=== PATIENT | female | born 1980 | race Two or more races ===

== ENCOUNTER 2022-11-28 20:05 | Emergency (ER) | payer OTHER, SELFPAY ==
--- NOTE | ~2022-11-28 | CT_ITS ---
EXAMINATION: CT ABDOMEN AND PELVIS WITH CONTRAST CLINICAL INFORMATION: Left lower quadrant pain COMPARISON: None available. TECHNIQUE: Multidetector volumetric images were obtained from the superior aspect of the liver through the pubic symphysis following administration 85 mL of Omnipaque 350 intravenous contrast. Sagittal and coronal reformatted images were obtained on the technologist's workstation. Oral contrast: No This CT examination was performed using dose optimization techniques as appropriate, variously including the following: *Automated exposure control *Adjustment of mA and/or kV according to patient size (this includes techniques or standardized protocols for targeted exams where dose is matched to indication/reason for exam; i.e. extremities or head) *Use of iterative reconstruction technique DLP: 549 mGy-cm FINDINGS: LUNG BASES: The visualized lung bases are unremarkable. LIVER, GALLBLADDER, AND BILIARY TREE: The liver is normal in size, shape, and attenuation. No focal hepatic lesion or biliary ductal dilatation is present. Cholecystectomy. PANCREAS: Unremarkable. SPLEEN: Unremarkable. ADRENAL GLANDS: Unremarkable. KIDNEYS AND URETERS: The kidneys are normal in size, shape, and attenuation. Bilateral renal cysts most of which are simple in appearance with exception of a thinly septate cyst in the mid pole of left kidney measuring 1.7 cm, Bosniak 2. No follow-up imaging recommended. There are a 3 punctate nonobstructive calculi in the upper pole of right kidney. No hydronephrosis, hydroureter, or calculi seen. No perinephric stranding. BLADDER: Unremarkable. GASTROINTESTINAL TRACT: Scattered left colonic diverticula. No evidence of diverticulitis. Normal appendix. Stomach and small bowel unremarkable. ABDOMINAL WALL: No significant hernia is appreciated. LYMPH NODES: Normal. VASCULAR: Unremarkable. PELVIC VISCERA: Unremarkable. OSSEOUS STRUCTURES: No acute or suspicious osseous abnormalities. Small broad-based posterior disc protrusion at L5-S1. CT/CT abdomen pelvis w IV con IMPRESSION: * No acute findings within the abdomen or pelvis to explain the patient's symptomatology. * Scattered left colonic diverticula without evidence of diverticulitis. * Cholecystectomy.
--- NOTE | 2022-11-28 20:13 | ED.GENADULT ---
HPI - General Adult General Chief complaint: Abdominal Pain Stated complaint: Abdominal pain Time Seen by Provider: 11/28/22 23:22 Source: patient, RN notes reviewed and old records reviewed Mode of arrival: ambulatory History of Present Illness HPI narrative: 42-year-old female with a past medical history of cholecystectomy, renal stones, diverticulitis, presenting to the ED complaining of left flank pain radiating to LUQ x 1 week with associated brbpr x yesterday. Reports abdominal pain is constant with associated nausea, worse after eating. Denies vomiting, diarrhea, constipation, melena, dysuria/hematuria, vaginal bleeding. Denies taking anticoagulation Onset (ago): day(s) Related Data Allergies Allergy/AdvReac Type Severity Reaction Status Date / Time No Known Allergies Allergy Verified 11/28/22 20:14 Review of Systems Review of Systems: Constitutional: No Fever, No Chills, No Fatigue, No Malaise ENT/Mouth: No Ear Pain, No Nasal Congestion, No sore throat, No Rhinorrhea, No Swallowing Difficulty Eyes: No Eye Pain, No Swelling, No Redness, No Vision Changes Cardiovascular: No Chest Pain, No SOB Respiratory: No Cough, No Sputum, No Dyspnea Gastrointestinal:+ Nausea, No Vomiting, No Diarrhea, No Constipation, +Abdominal pain, + Hematochezia, No Melena Genitourinary: No irregular bleeding, No Dysuria, No Hematuria, + Flank Pain, No Urinary Flow Changes, No Hesitancy Musculoskeletal: No joint pain, No Myalgias, No Joint Swelling Skin: No Skin Lesions, No rash Neuro: No Weakness, No Dizziness, No Headache Yes all other systems are reviewed and are negative Constitutional: Constitutional: Reports as per [facility] Past Medical History Attestation statement: The following information was validated with the patient. Source: old records reviewed Social History Social History Alcohol intake: current Alcohol intake frequency: holidays/special occasions only Smoked in Last 30 Days: No Advance Directives: No Advance Directives Information Provided: No Patient : No Physical Exam ED Vital Signs: Vital Signs - 24 hr 11/28/22 20:14 11/29/22 00:22 Temperature 97.2 F 98.6 F Pulse Rate 93 76 Respiratory Rate 18 16 Blood Pressure 153/91 H 127/70 Pulse Oximetry 98 100 Oxygen Delivery Method Room Air Room Air BMI result Body Mass Index 30.5 Const General: cooperative, healthy appearing, no acute distress, alert, awake and Physically active Orientation/consciousness: patient oriented x3 Limitations: no limitations HENMT Head: Yes normal to inspection and Yes atraumatic Ears: hearing grossly normal bilaterally General nose exam: Normal external nose present Face and sinus: Yes normal facial exam Eyes General: appearance normal, both eyes and all related structures EOM: EOMs intact bilaterally Neck Neck: Yes normal visual inspection and Yes no meningeal signs Resp Effort & Inspection: normal respiratory effort and no respiratory distress Auscultation: clear to auscultation bilaterally Cardio Rate: regular rate Heart sounds: S1 normal heart sound present and S2 normal heart sound present GI Inspection: Yes normal to inspection Palpation (GI): Soft to palpation, Tenderness to palpation present (GI) in the epigastrum and in the LUQ; with no rebound tenderness, no guarding and not rigid Rectal Exam - Female: No External hemorrhoid(s) present and No Internal hemorrhoid(s) present General: Yes CVA tenderness on the left Back/Spine/Pelvis Back: CVA tenderness Skin Rashes: no rashes Wounds: no wounds Neuro General: patient oriented x3, tone normal and no meningeal signs Cranial nerves: Yes CN's II-XII intact bilaterally Gait exam (Neuro): Normal gait present Extrem General: Yes normal to inspection Course Course Course Narrative: RME- 42 year old female presents for evaluation left lower abdominal pain and bloody bowel movements. Hx of diverticulitis. Left lower abdominal pain over the last week. Plan for labs and a CT abdomen/pelivs, UA -2337--no leukocytosis. H&H stable. Lipase elevated to 108. HCG negative -0050--UA not infected, trace blood -occult stool negative CT abdomen pelvis w IV con IMPRESSION: * No acute findings within the abdomen or pelvis to explain the patient's symptomatology. * Scattered left colonic diverticula without evidence of diverticulitis. * Cholecystectomy. Results discussed with patient including worrisome signs and symptoms and strict return precautions, and when to return to the emergency department. They verbalized understanding and feel safe for discharge at this time. Medications Administered Discontinued Medications Generic Name Dose Route Start Last Admin Trade Name Freq PRN Reason Stop Dose Admin Al Hydroxide/Mg Hydroxide 30 ml 11/29/22 00:57 11/29/22 01:21 Magnesium Hydrox/Alum Hydrox 30 Ml Oral.Susp PO 11/29/22 00:58 30 ml ONCE ONE Administration Famotidine 20 mg 11/29/22 00:57 11/29/22 01:21 Famotidine/Pf 20 Mg/2 Ml Vial IVPUSH 11/29/22 00:58 20 mg ONCE ONE Administration Sodium Chloride 1,000 mls @ 999 mls/hr 11/28/22 23:30 11/29/22 01:22 Ns IV 11/29/22 00:30 Infused .Q1H1M BHAVNA Infusion Iohexol 85 ml 11/29/22 00:17 11/29/22 00:19 Iohexol 350 Mg/Ml 100 Ml Infus..Btl IV 11/29/22 00:18 85 ml ONCE ONE Administration Ketorolac Tromethamine 15 mg 11/29/22 00:57 11/29/22 01:22 Ketorolac Tromethamine 15 Mg/Ml Vial IVPUSH 11/29/22 00:58 15 mg ONCE ONE Administration Medical Decision Making Medical Decision Making [facility] Narrative: 42-year-old female with a past medical history of cholecystectomy, renal stones, diverticulitis, presenting to the ED complaining of left flank pain radiating to LUQ x 1 week with associated brbpr x yesterday. On exam vital signs stable, NAD, nontoxic appearing, abdomen soft with epigastric/LUQ and left flank tenderness. No internal or external hemorrhoids appreciated on exam. No flail chest or rash. Concern for GI bleed vs colitis vs ? Renal stone vs pancreatitis. Low suspicion for PE/pneumonia or pyelonephritis/UTI. Plan: Labs, UA, occult stool, CT AP, IVF, re-evaluate Please refer to course for remaining clinical decision making, interpretation of labs/imaging results, and discussions with consultants and/or family members. Differential Diagnosis Differential Diagnoses: The differential diagnosis associated with the presentation includes As above Admission/Observation Consideration of admission/observation: Escalation of care including admission/observation considered Lab Data [facility] Lab Attestation statement: I reviewed the patient's lab results. 11/28/22 20:27 11/28/22 20:27 Labs: Lab Results 11/28/22 11/29/22 Range/Units 20: 00:25 WBC 10.2 (4.8-10.8) X10*3/uL RBC 5.06 (4.20-5.50) X10*6/uL Hgb 15.5 (12.0-16.0) g/dl Hct 46.6 (37.0-47.0) % MCV 92.1 (80.0-98.0) fL MCH 30.6 (27.0-33.0) pg MCHC 33.3 (31.0-35.0) g/dl RDW 12.8 (11.0-16.0) % Plt Count 271 (160-400) X10*3/uL MPV 10.4 (9.4-12.3) fL Immature Gran % (Auto) 0.3 (0.0-0.4) % Neut % (Auto) 67.8 (45-73) % Lymph % (Auto) 22.6 (20-40) % Coleman % (Auto) 7.1 (2-11) % Eos % (Auto) 1.4 (0-4) % Baso % (Auto) 0.8 (0-2) % Lymph # (Auto) 2.3 (1.2-4.9) X10*3/uL Coleman # (Auto) 0.7 (0.1-1.2) X10*3/uL Eos # (Auto) 0.1 (0.0-0.4) X10*3/uL Baso # (Auto) 0.1 (0.0-0.2) X10*3/uL Abs Immat Gran (auto) 0.03 (0.00-0.03) X10*3/uL Absolute Neuts (auto) 6.9 (2.0-8.3) x10*3/uL Absolute Nucleated RBC 0.000 (0.0-0.012) X10*3/uL Nucleated RBC % (auto) 0.0 (0.0-0.2) /100WBC Sodium 142 (135-145) mmol/L Potassium 3.8 (3.3-5.1) mmol/L Chloride 107 (96-108) mmol/L Carbon Dioxide 25 (22-29) mmol/L Anion Gap 14 (12-20) BUN 10 (9-16) mg/dL Creatinine 0.80 (0.5-1.4) mg/dL Estim Creat Clear Calc 90.5 Estimated GFR > 60 Random Glucose 90 (60-115) mg/dL Calcium 9.9 (8.4-10.2) mg/dL Magnesium 2.1 (1.6-2.6) mg/dL Total Bilirubin 0.5 (0.0-1.0) mg/dL AST 14 (5-31) U/L ALT 14 (0-31) U/L Alkaline Phosphatase 89 (39-117) U/L Total Protein 8.0 (6.5-8.0) g/dL Albumin 4.3 (3.5-5.0) g/dL Lipase 108 H (8-78) U/L Beta HCG, Quant < 2 mIU/mL Urine Color Yellow Urine Appearance Clear Urine pH 6.0 (5.0-9.0) Ur Specific [place] 1.020 (1.005-1.025) Urine Protein Negative (Neg-Trace) mg/dL Urine Glucose (UA) Negative (Negative) mg/dL Urine Ketones Negative (Negative) mg/dL Urine Blood Trace H (Negative) Urine Nitrite Negative (Negative) Ur Leukocyte Esterase Negative (Negative) Urine RBC 0-2 (0-2) /HPF Urine WBC 0-5 (0-5) /HPF Ur Squamous Epith Cells 11-20 (0-2) /HPF Calcium Oxalate Crystal Present Urine Bacteria 1+ (None Seen) Hyaline Casts 0-2 (0-2) /LPF Stool Occult Blood NEGATIVE (NEGATIVE) Radiology Impression Discussion of test interpretation with radiology: I have reviewed the radiologist's reading. External Record Review External record reviewed: Inpatient record, Office record, Outpatient record, Prior outpatient labs, Prior outpatient radiology, Primary care record and Outside ED record Tests considered The following testing was considered but not selected: As above Prescription Management I considered prescription management with: Pain Medication Discharge Plan Discharge Clinical Impression: Left flank pain, Abdominal pain, LUQ Patient Disposition: Home, Self-Care Instructions: Abdominal Pain (ED), Flank Pain (ED) Additional Instructions: Your blood work, urine, and CT scan or reassuring Please follow-up with your primary care doctor as well as gastroenterology Your stool was negative for blood If symptoms persist or worsen, pain is unbearable, your unable to eat or drink persistent nausea or vomiting or bloody stools return to the ED Referrals: [facility] [place] [facility] [Provider Group] Interventions: ED Discharge Assessment Last Done: 11/29/22 01:29
[2022-11-28 20:14] VITALS: BP 153/91; PULSE 93; RESP 18; TEMP 36.2; O2SAT 98; BMI 30.5
[2022-11-28 20:32] LABS: MANUAL DIFF FLAG NO
[2022-11-28 20:35] LABS: Basophils Absolute Auto 0.1 X10*3/uL (0.0-0.2); Basophils Percent Auto 0.8 % (0-2); Eosinophils Absolute Auto 0.1 X10*3/uL (0.0-0.4); Eosinophils Percent Auto 1.4 % (0-4); Hematocrit 46.6 % (37.0-47.0); Hemoglobin 15.5 g/dl (12.0-16.0); Imm Gran Abs Auto 0.03 X10*3/uL (0.00-0.03); Imm Gran Pct Auto 0.3 % (0.0-0.4); Lymphocytes Absolute Auto 2.3 X10*3/uL (1.2-4.9); Lymphocytes Percent Auto 22.6 % (20-40); Mean Corpuscular HGB Conc 33.3 g/dl (31.0-35.0); Mean Corpuscular Hemoglobin 30.6 pg (27.0-33.0); Mean Corpuscular Volume 92.1 fL (80.0-98.0); Mean Platelet Volume 10.4 fL (9.4-12.3); Monocytes Absolute Auto 0.7 X10*3/uL (0.1-1.2); Monocytes Percent Auto 7.1 % (2-11); Neutrophils Absolute Auto 6.9 x10*3/uL (2.0-8.3); Neutrophils Percent Auto 67.8 % (45-73); Platelet Count 271 X10*3/uL (160-400); Red Blood Count 5.06 X10*6/uL (4.20-5.50); Red Cell Distribution Width 12.8 % (11.0-16.0); White Blood Count 10.2 X10*3/uL (4.8-10.8)
[2022-11-28 21:00] LABS: Alanine Aminotransferase 14 U/L (0-31); Albumin Level 4.3 g/dL (3.5-5.0); Alkaline Phosphatase 89 U/L (39-117); Anion Gap 14 (12-20); Aspartate Amino Transferase 14 U/L (5-31); Bilirubin Total 0.5 mg/dL (0.0-1.0); Blood Urea Nitrogen 10 mg/dL (9-16); Calcium 9.9 mg/dL (8.4-10.2); Carbon Dioxide 25 mmol/L (22-29); Chloride 107 mmol/L (96-108); Creatinine Clr Calc Pharmacy 90.5; Estimated Glomerular Filt Rate > 60; Glucose Random 90 mg/dL (60-115); HCG Quantitative < 2 mIU/mL; Lipase 108 U/L (8-78); Potassium 3.8 mmol/L (3.3-5.1); Sodium 142 mmol/L (135-145)
[2022-11-29 00:04] LABS: Magnesium 2.1 mg/dL (1.6-2.6)
[2022-11-29] MEDS: iohexoL 350 MG/ML 100 ML INFUS..BTL 85 ML IV (00:19)
[2022-11-29] MEDS: 0.9 % Sodium Chloride 1,000 ML 999 ML IV (00:20)
[2022-11-29 00:22] VITALS: BP 127/70; PULSE 76; RESP 16; TEMP 37; O2SAT 100
[2022-11-29 00:31] LABS: OBS Int Ctl Valid YES; OBS1 NEGATIVE (NEGATIVE)
[2022-11-29 00:32] LABS: Appearance Urine Clear; Color Urine Yellow; Glucose Urine UA Negative (Negative); Leukocyte Esterase Urine Negative (Negative); Nitrite Urine Negative (Negative); UMIC TRIGGER UACC YES; Urine Blood Trace (Negative); Urine Ketones Negative (Negative); Urine Protein Negative (Neg-Trace)
[2022-11-29 00:45] LABS: Bacteria Urine 1+ (None Seen); Calcium Oxalate Crystals Urine Present; Hyaline Casts Urine 0-2 /LPF (0-2); RBC Urine 0-2 /HPF (0-2); WBC Urine 0-5 /HPF (0-5)
[2022-11-29] MEDS: Famotidine/PF 20 MG/2 ML VIAL IVPUSH (01:21)
[2022-11-29] MEDS: Magnesium Hydrox/Alum Hydrox 30 ML ORAL.SUSP PO (01:21)
[2022-11-29] MEDS: Ketorolac Tromethamine 15 MG/ML VIAL IVPUSH (01:22)
== END 2022-11-29 01:51 | disposition home or self-care (01) ==
PROVIDERS: Physician Assistant; Emergency Provider Emergency Medicine Emergency Medical Services
DX: R10.9 Unspecified abdominal pain (principal); R10.12 Left upper quadrant pain
CPT/HCPCS: 36415; 74177; 80053; 81001; 82272; 83690; 83735; 84702; 85025; 96361; 96374; 96375; 99284; J1885; Q9967